=== PATIENT | female | born 1995 | race Caucasian/White ===

== ENCOUNTER 2023-03-09 20:26 | Emergency (ER) | payer OTHER ==
[~2023-03-09] VITALS: Ht 172.7 cm; Wt 95.7 kg
[2023-03-09 21:36] LABS: CLARITY,URINE CLEAR (CLEAR); COLOR,URINE YELLOW (YELLOW); KETONES,URINE NEGATIVE (NEGATIVE); LEUKOCYTE ESTERASE ,URINE NEGATIVE (NEGATIVE); NITRITE,URINE NEGATIVE (NEGATIVE); PROTEIN,URINE DIPSTICK NEGATIVE (NEGATIVE); URINE UROBILINOGEN 0.2 mg/dL (0.2 - 1)
[2023-03-09 21:50] LABS: BACTERIA,URINE RARE /HPF; EPITHELIAL CELLS,URINE FEW /LPF; RBC,URINE 0-5 /HPF (0-5); WBC,URINE (MAN) 0-5 /HPF (0-5)
== END 2023-03-09 23:23 | disposition home or self-care (01) ==
LOC: ER 20:35
DX: N93.8 Other specified abnormal uterine and vaginal bleeding (principal); E28.2 Polycystic ovarian syndrome
CPT/HCPCS: 81001; 87086; 87210; 87491; 87591; 99282